=== PATIENT | male | born 1990 | race Two or more races ===

== ENCOUNTER 2023-05-25 16:05 | Emergency (ER) | payer MEDICAID ==
[~2023-05-25] VITALS: Ht 177.8 cm; Wt 93.0 kg
[~2023-05-25 16:05] MED LIST: TIZA4TAB5 PO
[2023-05-25 17:29] VITALS: BP 131/89; TEMP 98; O2SAT 98
[2023-05-25] MEDS ORDERED: IBUPROFEN 600 MG TABLET ONE (17:58)
[2023-05-25] MEDS: IBUPROFEN 600 MG TABLET PO ONE (18:00)
== END 2023-05-25 20:34 | disposition home or self-care (01) ==
LOC: ER 16:05
DX: M25.521 Pain in right elbow (principal); Z79.899 Other long term (current) drug therapy; Z88.0 Allergy status to penicillin
CPT/HCPCS: 73080-TC